=== PATIENT | male | born 1990 | race American Indian/Alaskan Native ===

== ENCOUNTER 2021-01-23 02:32 | Emergency (ER) | payer SELFPAY ==
--- NOTE | 2021-01-23 04:15 | Emergency Department Report ---
Chief Complaint: Extremity Injury, Lower Stated Complaint: LT LEG INJURY Time Seen by Provider: 01/23/21 04:08 - HPI History of Present Illness: 30-year-old male patient presents to the emergency department with complaints of left calf pain starting today. Patient states the pain began while he was playing basketball. He noticed the pain after he jumped for a lay up, but did not fall down. He has been ambulatory without assistance since playing basketball earlier today. He did not take any medications prior to arrival. No venous thromboembolism risk factors identified on history. Denies all other complaints at this time. - ROS Review of Systems: GENERAL: Negative for fever. CARDIOVASCULAR: Negative for chest pain. PULMONARY: Negative for shortness of breath. GASTROINTESTINAL: Negative for abdominal pain. MUSCULOSKELETAL: Positive for left leg pain NEUROLOGICAL: Negative for headache. INTEGUMENTARY: Negative for rash. - Exam Vital Signs: Vital Signs 01/23/21 03:21 Temperature 99.3 F Pulse Rate 73 Respiratory 18 Rate Blood Pressure 116/77 O2 Sat by Pulse 100 Oximetry Physical Exam: General: Awake, appropriately interactive, no acute distress. Neck: Supple. Full range of motion intact. Cardiovascular: Normal peripheral perfusion. Pulmonary: No respiratory distress. Patient is speaking normally without use of accessory muscles. Skin: No apparent rashes or lesions. Neurological: No facial asymmetry. Speech is clear. Follows commands. Patient is alert and oriented. Musculoskeletal: Tenderness to palpation along the proximal left calf. Equal calf circumference. No deformity or dislocation. Moves all four extremities spontaneously with normal range of motion. Full range of motion of the knee intact. Ambulatory without assistance. Psych: Cooperative. Appropriate mood and affect. MSE screening note: Focused history and physical exam performed. Due to findings the following was ordered: ED Medical Decision Making - Medical Decision Making Differential diagnosis including but not limited to: sprain, strain, contusion, DVT Patient presents to the emergency department with complaints of left calf pain after playing basketball. He is afebrile, hemodynamically stable, neurovascularly intact, ambulatory without assistance. No venous thromboembolism risk factors identified on history. No clinical indication for further diagnostic work-up or emergent medical treatment. Advised to take Tylenol and Motrin and gradually advance physical activity slowly as tolerated. Strict return precautions provided. ED Disposition for MSE Clinical Impression: Encounter for medical screening examination Disposition: TO HOME OR SELFCARE Is pt being admited?: No Does the pt Need Aspirin: No Condition: Stable Instructions: Medical Screening Exam Additional Instructions: Take Tylenol every 4 hours and Motrin every 8 hours as needed for pain. Gradually advance physical activity slowly as tolerated. Follow-up with primary care provider this week. Call Sunday to schedule an appointment. See referral information below. Return to the emergency department immediately for new or worsening symptoms. Referrals: MAK PANIAGUA MD [Staff Physician] - 3-5 Days [facility] [Provider Group] - 3-5 Days Forms: Work/School Release Form(ED) Time of Disposition: 04:14
[2021-01-23 04:43] VITALS: BP 122/62
== END 2021-01-23 04:44 | disposition home or self-care (01) ==
LOC: ED 02:32
DX: Z13.9 Encounter for screening, unspecified (principal)
CPT/HCPCS: 99282

== ENCOUNTER 2021-05-12 10:50 | Emergency (ER) | payer SELFPAY ==
[2021-05-12] MEDS ORDERED: CYCLOBENZAPRINE 10 MG TAB PO ONE (11:26)
[2021-05-12] MEDS ORDERED: ASPIRIN 325 MG TAB PO ONE (11:26)
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
[2021-05-12 11:48] LABS: Basophils % (Auto) 0.3 % (0.0-1.8); Eosinophils # (Auto) 0.1 K/mm3 (0.0-0.4); Eosinophils % (Auto) 3.1 % (0.0-4.3); Hematocrit 42.4 % (35.5-45.6); Hemoglobin 14.5 gm/dl (11.8-15.2); Lymphocytes # (Auto) 1.6 K/mm3 (1.2-5.4); Lymphocytes % (Auto) 33.2 % (13.4-35.0); Mean Corpuscular HGB Conc 34 % (32-34); Mean Corpuscular Volume 95 fl (84-94); Monocytes # (Auto) 0.5 K/mm3 (0.0-0.8); Monocytes % (Auto) 11.4 % (0.0-7.3); Platelet Count 219 K/mm3 (140-440); Red Blood Count 4.45 M/mm3 (3.65-5.03); Red Cell Distribution Width 13.7 % (13.2-15.2)
[2021-05-12 11:52] VITALS: BP 115/75
[2021-05-12 12:12] LABS: Alanine Aminotransferase 8 units/L (7-56); Albumin 4.1 g/dL (3.9-5); BUN/Creatinine Ratio 14; Blood Urea Nitrogen 13 mg/dL (9-20); Calcium 9.2 mg/dL (8.4-10.2); Hemolysis Index 11
--- NOTE | 2021-05-12 12:24 | XRay Report ---
CHEST 2 VIEWS INDICATION / CLINICAL INFORMATION: Chest pain. COMPARISON: None available. FINDINGS: SUPPORT DEVICES: None. HEART / MEDIASTINUM: No significant abnormality. LUNGS / PLEURA: No significant pulmonary or pleural abnormality. No pneumothorax. ADDITIONAL FINDINGS: No significant additional findings. IMPRESSION: 1. No acute findings. Signer Name: Jose Elias Feliciano MD Signed: 05/12/2021 12:20 PM Workstation Name: [id number]
--- NOTE | 2021-05-12 12:57 | Event Note ---
Face to Face: For this encounter I have reviewed the PA/PASSENGER BRAKEMAN documentation, treatment plan, medical decision making, and I had face to face time with this patient. Personally visualized the patient myself. Patient has no acute distress. EKG shows J-point notching diffusely which is likely just early repolarization. There is some questionable changes consistent with pericarditis. No reciprocal changes consistent with acute MA. Troponin is negative. Patient symptoms reproducible and musculoskeletal in nature and been present for greater than 24 hours. Do believe the troponin is sufficient to rule out an acute MA at this time. Please see KAPIL note for discharge plan.
--- NOTE | 2021-05-13 14:12 | Electrocardiograph Report ---
[facility] Test Date: 2021-05-12 Test Time: 11:31:03 Pat Name: DAVID HAWKINS Department: Room: Gender: M Roadway Engineer: SOULEYMANE : 1990 Requested By: BEE BLUNT Order Number: [id number] Reading MD: Sybil Marte Measurements Intervals [place] Rate: 80 P: 77 MS: 134 QRS: 91 QRSD: 78 T: 76 QT: 359 QTc: 416 Interpretive Statements Sinus rhythm Early repolarization ST changes No previous ECG available for comparison Electronically Signed On 05-13-2021 14:12:35 EDT by Sybil Marte
== END 2021-05-12 13:25 | disposition home or self-care (01) ==
LOC: ED 10:50
DX: M54.2 Cervicalgia (principal); R07.9 Chest pain, unspecified; Z72.0 Tobacco use
CPT/HCPCS: 36415; 71046; 80053; 84484; 85025; 93005; 99284